=== PATIENT | female | born 1945 | race Caucasian/White ===

== ENCOUNTER 2018-10-13 09:53 | Emergency (ER) | payer OTHER ==
--- OUTSIDE RECORDS SUMMARY | 2018-10-13 09:55 | XMS REPORT | Clinical Summary ---
:1945 Author Organization [facility] Address [address] [place] [address] Care Team Providers Name Role Phone Melanie Patricia Karthikeyan Primary Care Provider Allergies No Known Allergies Medications Medication Sig Dispensed Refills Start Date End Date Status lisinopril-hydroCHLOR Take 1 tablet by 0 Active Othiazide mouth daily. (PRINZIDE,ZESTORETIC) 20-12.5 mg per tablet umeclidinium-vilanter Inhale 1 puff by 0 Active ol (ANORO ELLIPTA) mouth via 62.5-25 mcg/actuation inhaler nightly. DsDv aspirin 81 MG EC Take 81 mg by 0 Active tablet mouth daily. traMADol (ULTRAM) 50 Take 50 mg by 0 Active mg tablet mouth 3 (three) times daily as needed for Pain. clopidogrel (PLAVIX) Take 1 tablet 30 tablet 0 06/26/2017 06/26/2018 75 mg tablet (75 mg total) by mouth daily. atorvastatin Take 1 tablet 30 tablet 0 06/25/2017 06/25/2018 (LIPITOR) 40 MG (40 mg total) by tablet mouth nightly. Active Problems Problem Noted Date Popliteal artery stenosis, left 06/23/2017 Peripheral arterial disease 06/22/2017 Hypertension COPD (chronic obstructive pulmonary disease) Social History Tobacco Use Types Packs/Day Years Used Date Current Every Day Smoker 40 Smokeless Tobacco: Never Used Tobacco Cessation: Ready to Quit: Yes; Counseling Given: Yes Comments: Pt has chantix at home but hasnt used it yet Alcohol Use Drinks/Week oz/Week Comments No Sex Assigned at Date Recorded Not on file Job Start Date Occupation Industry Not on file Not on file Not on file Travel History Travel Start Travel End No recent travel history available. Last Filed Vital Signs Not on file Plan of Treatment Not on file Results Not on fileafter 10/12/2017 Insurance Payer Benefit Plan / Group Subscriber ID Type Phone Address MEDICARE MEDICARE A B xxxxxxxxxx Medicare MCR SUPPLEMENT/[employer] xxxxxxxxx Comm Advance Directives For more information, please contact:[address] [phone] Code Status Date Activated Date Inactivated Comments Full Code 06/22/2017 10:36 PM 06/25/2017 6:58 PM This code status was determined by: Patient
--- OUTSIDE RECORDS SUMMARY | 2018-10-13 09:56 | XMS REPORT ---
:1945 [facility] Address [address] [place] [address] [address] [place] [address] Care Team Providers Name Role Phone RACHCarANMOL Unavailable Unavailable CARLOS BARRETT Unavailable Unavailable Problems This patient has no known problems. Allergies, Adverse Reactions, Alerts This patient has no known allergies or adverse reactions. Medications This patient has no known medications. Results Test Description Test Time Test Comments Text Results Atomic Results Result Comments BLOOD CULTURE 2017-06-27 23:00:00 Test Item Value Reference Range Comments CULTURE (BEAKER) (test vehi=9469) No growth in 5 days BLOOD [id number] 23:00:00 Test Item Value Reference Range Comments CULTURE (BEAKER) (test yqls=7874) No growth in 5 days URINE [id number] 13:33:00 Test Item Value Reference Range Comments CULTURE (BEAKER) (test acak=2222) No growth [id number] 04:10:00 Test Item Value Reference Range Comments MAGNESIUM (BEAKER) (test 1.9 mg/dL 1.5-3.0 Specimen slightly hemolyzed wvew=926) [id number] 04:10:00 Test Item Value Reference Range Comments PHOSPHORUS (BEAKER) (test 3.7 mg/dL 2.5-4.5 Specimen slightly hemolyzed ffes=786) BASIC METABOLIC [id number] 04:10:00 Test Item Value Reference Range Comments SODIUM (BEAKER) (test 140 meq/L 135-148 evwt=918) POTASSIUM (BEAKER) (test 4.2 meq/L 3.5-5.5 Specimen slightly zutr=279) hemolyzed CHLORIDE (BEAKER) (test 107 meq/L 98-106 wkcq=126) CO2 (BEAKER) (test 20 meq/L 20-31 lgtt=755) BLOOD UREA NITROGEN 18 mg/dL 10-26 (BEAKER) (test psyu=247) CREATININE (BEAKER) (test 0.86 mg/dL 0.50-1.20 Specimen slightly axyu=235) hemolyzed GLUCOSE RANDOM (BEAKER) 91 mg/dL 70-110 (test spsy=840) CALCIUM (BEAKER) (test 9.0 mg/dL 8.5-10.5 myts=156) EGFR (BEAKER) (test 65 mL/min/1.73 sq m ESTIMATED GFR IS NOT psse=6040) ACCURATE CREATININE CLEARANCE IN PREDICTING GLOMERULAR FILTRATION RATE. ESTIMATED GFR IS NOT APPLICABLE FOR DIALYSIS PATIENTS. CBC W/PLT COUNT & AUTO [id number] 03:50:00 Test Item Value Reference Range Comments WHITE BLOOD CELL COUNT (BEAKER) (test sphs=370) 7.9 K/ L 4.0-10.0 RED BLOOD CELL COUNT (BEAKER) (test bpnp=285) 4.24 M/ L 4.00-5.00 HEMOGLOBIN (BEAKER) (test dhin=893) 13.3 GM/DL 12.0-15.0 HEMATOCRIT (BEAKER) (test gzix=520) 38.8 % 36.0-45.0 MEAN CORPUSCULAR VOLUME (BEAKER) (test oswg=572) 91.3 fL 82.0-99.0 MEAN CORPUSCULAR HEMOGLOBIN (BEAKER) (test 31.3 pg 27.0-33.0 nmsh=847) MEAN CORPUSCULAR HEMOGLOBIN CONC (BEAKER) (test 34.3 GM/DL 32.0-36.0 rdge=703) RED CELL DISTRIBUTION WIDTH (BEAKER) (test 14.6 % 12.0-15.0 tmqq=755) PLATELET COUNT (BEAKER) (test oejx=665) 245 K/CU MM 150-430 MEAN PLATELET VOLUME (BEAKER) (test kvva=052) 9.1 fL 6.5-10.5 NUCLEATED RED BLOOD CELLS (BEAKER) (test 0 /100 WBC 0-0 zcgq=357) NEUTROPHILS RELATIVE PERCENT (BEAKER) (test 59 % iaff=360) LYMPHOCYTES RELATIVE PERCENT (BEAKER) (test 28 % cnmx=176) MONOCYTES RELATIVE PERCENT (BEAKER) (test 8 % ppmz=275) EOSINOPHILS RELATIVE PERCENT (BEAKER) (test 4 % hlga=956) BASOPHILS RELATIVE PERCENT (BEAKER) (test 1 % tpsc=577) NEUTROPHILS ABSOLUTE COUNT (BEAKER) (test 4.70 K/ L 1.80-8.00 hqvr=092) LYMPHOCYTES ABSOLUTE COUNT (BEAKER) (test 2.20 K/ L 1.48-4.50 ecod=706) MONOCYTES ABSOLUTE COUNT (BEAKER) (test 0.60 K/ L 0.00-1.30 qfbs=288) EOSINOPHILS ABSOLUTE COUNT (BEAKER) (test 0.30 K/ L 0.00-0.50 wibl=527) BASOPHILS ABSOLUTE COUNT (BEAKER) (test 0.10 K/ L 0.00-0.20 tuhh=152) [id number] 18:22:00 Test Item Value Reference Range Comments PARTIAL THROMBOPLASTIN TIME (BEAKER) (test 40.0 seconds 23.2-36.1 wold=463) CBC (HEMOGRAM ONLY)2017-06-24 18:10:00 Test Item Value Reference Range Comments WHITE BLOOD CELL COUNT (BEAKER) (test nnvy=336) 9.5 K/ L 4.0-10.0 RED BLOOD CELL COUNT (BEAKER) (test zdkw=226) 4.57 M/ L 4.00-5.00 HEMOGLOBIN (BEAKER) (test nulf=331) 14.2 GM/DL 12.0-15.0 HEMATOCRIT (BEAKER) (test ppcq=706) 41.8 % 36.0-45.0 MEAN CORPUSCULAR VOLUME (BEAKER) (test pzbe=847) 91.5 fL 82.0-99.0 MEAN CORPUSCULAR HEMOGLOBIN (BEAKER) (test 31.1 pg 27.0-33.0 troz=427) MEAN CORPUSCULAR HEMOGLOBIN CONC (BEAKER) (test 34.0 GM/DL 32.0-36.0 ckbe=507) RED CELL DISTRIBUTION WIDTH (BEAKER) (test 14.8 % 12.0-15.0 qwqx=851) PLATELET COUNT (BEAKER) (test vejc=538) 247 K/CU MM 150-430 MEAN PLATELET VOLUME (BEAKER) (test nqub=571) 9.9 fL 6.5-10.5 NUCLEATED RED BLOOD CELLS (BEAKER) (test 0 /100 WBC 0-0 dawp=890) [id number] 07:55:00 Test Item Value Reference Range Comments PARTIAL THROMBOPLASTIN TIME (BEAKER) (test 71.8 seconds 23.2-36.1 jwvv=183) [id number] 04:59:00 Test Item Value Reference Range Comments PHOSPHORUS (BEAKER) (test wovx=250) 4.0 mg/dL 2.5-4.5 [id number] 04:59:00 Test Item Value Reference Range Comments MAGNESIUM (BEAKER) (test kkje=253) 1.9 mg/dL 1.5-3.0 BASIC METABOLIC [id number] 04:59:00 Test Item Value Reference Range Comments SODIUM (BEAKER) (test 140 meq/L 135-148 urmt=684) POTASSIUM (BEAKER) (test 4.2 meq/L 3.5-5.5 toet=099) CHLORIDE (BEAKER) (test 109 meq/L 98-106 zxhx=850) CO2 (BEAKER) (test 20 meq/L 20-31 kyoo=105) BLOOD UREA NITROGEN 23 mg/dL 10-26 (BEAKER) (test eolx=281) CREATININE (BEAKER) (test 1.18 mg/dL 0.50-1.20 qwle=916) GLUCOSE RANDOM (BEAKER) 107 mg/dL 70-110 (test yqht=553) CALCIUM (BEAKER) (test 9.4 mg/dL 8.5-10.5 hunv=729) EGFR (BEAKER) (test 45 mL/min/1.73 sq m ESTIMATED GFR IS NOT mgqz=2399) ACCURATE CREATININE CLEARANCE IN PREDICTING GLOMERULAR FILTRATION RATE. ESTIMATED GFR IS NOT APPLICABLE FOR DIALYSIS PATIENTS. CBC W/PLT COUNT & AUTO [id number] 04:35:00 Test Item Value Reference Range Comments WHITE BLOOD CELL COUNT (BEAKER) (test usmy=980) 9.5 K/ L 4.0-10.0 RED BLOOD CELL COUNT (BEAKER) (test xlvc=670) 4.36 M/ L 4.00-5.00 HEMOGLOBIN (BEAKER) (test sewc=348) 13.6 GM/DL 12.0-15.0 HEMATOCRIT (BEAKER) (test dnpr=360) 39.9 % 36.0-45.0 MEAN CORPUSCULAR VOLUME (BEAKER) (test cfsw=779) 91.6 fL 82.0-99.0 MEAN CORPUSCULAR HEMOGLOBIN (BEAKER) (test 31.2 pg 27.0-33.0 yzge=735) MEAN CORPUSCULAR HEMOGLOBIN CONC (BEAKER) (test 34.1 GM/DL 32.0-36.0 qwbt=323) RED CELL DISTRIBUTION WIDTH (BEAKER) (test 14.3 % 12.0-15.0 lbci=875) PLATELET COUNT (BEAKER) (test hsua=014) 204 K/CU MM 150-430 MEAN PLATELET VOLUME (BEAKER) (test glbc=079) 9.7 fL 6.5-10.5 NUCLEATED RED BLOOD CELLS (BEAKER) (test 0 /100 WBC 0-0 sree=118) NEUTROPHILS RELATIVE PERCENT (BEAKER) (test 66 % belh=422) LYMPHOCYTES RELATIVE PERCENT (BEAKER) (test 22 % niyz=318) MONOCYTES RELATIVE PERCENT (BEAKER) (test 9 % kgta=728) EOSINOPHILS RELATIVE PERCENT (BEAKER) (test 3 % ptux=971) BASOPHILS RELATIVE PERCENT (BEAKER) (test 0 % gnsx=646) NEUTROPHILS ABSOLUTE COUNT (BEAKER) (test 6.20 K/ L 1.80-8.00 sqav=212) LYMPHOCYTES ABSOLUTE COUNT (BEAKER) (test 2.10 K/ L 1.48-4.50 atoq=177) MONOCYTES ABSOLUTE COUNT (BEAKER) (test 0.80 K/ L 0.00-1.30 rnqu=123) EOSINOPHILS ABSOLUTE COUNT (BEAKER) (test 0.30 K/ L 0.00-0.50 crir=598) BASOPHILS ABSOLUTE COUNT (BEAKER) (test 0.00 K/ L 0.00-0.20 bjyc=690) [id number] 01:33:00 Test Item Value Reference Range Comments PARTIAL THROMBOPLASTIN TIME (BEAKER) (test 74.1 seconds 23.2-36.1 unqz=869) [id number] 20:11:00 Test Item Value Reference Range Comments PARTIAL THROMBOPLASTIN TIME (BEAKER) (test 58.6 seconds 23.2-36.1 skbr=349) ARTERIAL DOPPLER LEGS, [id number] 14:29:00Reason for exam:->R/O OcclusionFINAL REPORT BILATERAL LOWER EXTREMITY ARTERIAL DOPPLER INDICATION: R/O Occlusion COMPARISON: None TECHNIQUE: Grayscale, color Doppler, and spectral waveform analysis evaluations of the bilateral lower extremity arterial systems were obtained. FINDINGS: RIGHT LOWER EXTREMITY:Right distal external iliac, common femoral, superficial femoral , deep femoral, popliteal, anterior tibial, posterior tibial, and peroneal arteries are patent. Spectral Doppler demonstrates normal triphasic waveforms of the right lower extremity with the exception of the posterior tibial and peroneal arteries which demonstrate monophasic and biphasic waveforms respectively. Peak systolic velocities (cm/sec):Common femoral artery: 166.69Profunda femoral artery: 85.88Upper femoral artery: 109.98Mid femoral artery: 125.38Lower femoral artery: 152.25Popliteal artery: 110.91Proximal anterior tibial artery: 121.83Proximal peroneal artery: 104.98Proximal posterior tibial artery: 10.94Distal posterior tibial artery: 18.75Distal anterior tibial artery: 68.73 LEFT LOWER EXTREMITY:There is complete occlusionof the proximal and mid left posterior tibial artery. There is a high- grade stenosis in the distal left superficial femoral artery. Left distal external iliac, common femoral, superficial femoral, deepfemoral, popliteal, anterior tibial, and peroneal arteries are patent. Spectral Doppler demonstratesnormal monophasic waveforms throughout the lower extremity with the exception of the external iliac,common femoral, deep femoral and proximal and mid femoral arteries which demonstrate either triphasic or biphasic waveforms. Peak systolic velocities (cm/sec):Common femoral artery: 175.92Profunda femoral artery: 58.09Upper femoral artery: 69.34Mid femoral artery: 103.71Lower femoral artery: 291.68Popliteal artery: 47.48Proximal anterior tibial artery: 42.83Proximal peroneal artery: 52.34Proximal posterior tibial artery: 0.00Distal posterior tibial artery: 13.32Distal peroneal artery: 60.15Distal anterior tibial artery: 75.92 IMPRESSION:1. 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 Signed: Cleopatra Funse MDReport Verified Date/Time: 06/23 14:29:09 Reading Location: [facility] Radiology Reading Room [id number] 08:37: 00 Test Item Value Reference Range Comments PARTIAL THROMBOPLASTIN TIME (BEAKER) (test 57.6 seconds 23.2-36.1 yblz=211) [id number] 05:00:00 Test Item Value Reference Range Comments PHOSPHORUS (BEAKER) (test hnev=106) 4.2 mg/dL 2.5-4.5 [id number] 05:00:00 Test Item Value Reference Range Comments MAGNESIUM (BEAKER) (test dphc=806) 1.7 mg/dL 1.5-3.0 BASIC METABOLIC [id number] 05:00:00 Test Item Value Reference Range Comments SODIUM (BEAKER) (test 139 meq/L 135-148 juvw=532) POTASSIUM (BEAKER) (test 4.3 meq/L 3.5-5.5 lqvo=211) CHLORIDE (BEAKER) (test 106 meq/L 98-106 icln=350) CO2 (BEAKER) (test 22 meq/L 20-31 pxji=482) BLOOD UREA NITROGEN 20 mg/dL 10-26 (BEAKER) (test qoxh=400) CREATININE (BEAKER) (test 0.89 mg/dL 0.50-1.20 jrjw=876) GLUCOSE RANDOM (BEAKER) 100 mg/dL 70-110 (test fwne=727) CALCIUM (BEAKER) (test 9.5 mg/dL 8.5-10.5 ilos=955) EGFR (BEAKER) (test 63 mL/min/1.73 sq m ESTIMATED GFR IS NOT uhpt=0435) ACCURATE CREATININE CLEARANCE IN PREDICTING GLOMERULAR FILTRATION RATE. ESTIMATED GFR IS NOT APPLICABLE FOR DIALYSIS PATIENTS. CBC W/PLT COUNT & AUTO [id number] 04:23:00 Test Item Value Reference Range Comments WHITE BLOOD CELL COUNT (BEAKER) (test acca=718) 9.7 K/ L 4.0-10.0 RED BLOOD CELL COUNT (BEAKER) (test xoit=704) 4.35 M/ L 4.00-5.00 HEMOGLOBIN (BEAKER) (test tdtw=259) 13.6 GM/DL 12.0-15.0 HEMATOCRIT (BEAKER) (test hhgz=237) 40.2 % 36.0-45.0 MEAN CORPUSCULAR VOLUME (BEAKER) (test dkwl=804) 92.3 fL 82.0-99.0 MEAN CORPUSCULAR HEMOGLOBIN (BEAKER) (test 31.1 pg 27.0-33.0 vcmq=149) MEAN CORPUSCULAR HEMOGLOBIN CONC (BEAKER) (test 33.7 GM/DL 32.0-36.0 qsdg=400) RED CELL DISTRIBUTION WIDTH (BEAKER) (test 14.9 % 12.0-15.0 czzg=467) PLATELET COUNT (BEAKER) (test wxch=024) 188 K/CU MM 150-430 MEAN PLATELET VOLUME (BEAKER) (test ewlk=054) 9.7 fL 6.5-10.5 NUCLEATED RED BLOOD CELLS (BEAKER) (test 0 /100 WBC 0-0 camy=856) NEUTROPHILS RELATIVE PERCENT (BEAKER) (test 61 % skil=772) LYMPHOCYTES RELATIVE PERCENT (BEAKER) (test 28 % kkup=500) MONOCYTES RELATIVE PERCENT (BEAKER) (test 6 % borv=801) EOSINOPHILS RELATIVE PERCENT (BEAKER) (test 3 % yvds=310) BASOPHILS RELATIVE PERCENT (BEAKER) (test 2 % zxqg=573) NEUTROPHILS ABSOLUTE COUNT (BEAKER) (test 5.90 K/ L 1.80-8.00 qeqz=666) LYMPHOCYTES ABSOLUTE COUNT (BEAKER) (test 2.80 K/ L 1.48-4.50 pofc=458) MONOCYTES ABSOLUTE COUNT (BEAKER) (test 0.60 K/ L 0.00-1.30 zawj=988) EOSINOPHILS ABSOLUTE COUNT (BEAKER) (test 0.30 K/ L 0.00-0.50 mkom=142) BASOPHILS ABSOLUTE COUNT (BEAKER) (test 0.20 K/ L 0.00-0.20 osyt=247) [id number] 01:10:00 Test Item Value Reference Range Comments PARTIAL THROMBOPLASTIN TIME (BEAKER) (test 46.5 seconds 23.2-36.1 fada=651) RAPID INFLUENZA A&B [id number] 18:18:00 Test Item Value Reference Range Comments RAPID INFLUENZA A AG (BEAKER) (test etal=0637) Negative Negative RAPID INFLUENZA B AG (BEAKER) (test eeal=1030) Negative Negative [id number] 18:11:00 Test Item Value Reference Range Comments PROTIME (BEAKER) (test gtmg=445) 12.8 seconds 11.8-14.4 INR (BEAKER) (test plrk=103) 1.0 1.2-1.5 PARTIAL THROMBOPLASTIN TIME (BEAKER) (test 26.4 seconds 23.2-36.1 qkqq=149) RECOMMENDED COUMADIN/WARFARIN INR THERAPY RANGESSTANDARD DOSE: 2.0 - 3.0 Includes: PROPHYLAXIS forvenous thrombosis, systemic embolization; TREATMENT for venous thrombosis and/or pulmonary embolus.HIGH RISK: Target INR is 2.5-3.5 for patients with mechanical heart valves.BASIC METABOLIC [id number] 17:54: 00 Test Item Value Reference Range Comments SODIUM (BEAKER) (test 137 meq/L 135-148 pcjd=672) POTASSIUM (BEAKER) (test 4.3 meq/L 3.5-5.5 dlok=758) CHLORIDE (BEAKER) (test 102 meq/L 98-106 bspf=556) CO2 (BEAKER) (test 22 meq/L 20-31 zsxn=693) BLOOD UREA NITROGEN 20 mg/dL 10-26 (BEAKER) (test ajae=976) CREATININE (BEAKER) (test 0.95 mg/dL 0.50-1.20 kcsc=337) GLUCOSE RANDOM (BEAKER) 96 mg/dL 70-110 (test xrhk=960) CALCIUM (BEAKER) (test 10.5 mg/dL 8.5-10.5 mpdc=997) EGFR (BEAKER) (test 58 mL/min/1.73 sq m ESTIMATED GFR IS NOT nrvz=6621) ACCURATE CREATININE CLEARANCE IN PREDICTING GLOMERULAR FILTRATION RATE. ESTIMATED GFR IS NOT APPLICABLE FOR DIALYSIS PATIENTS. RAD, CHEST, 1 VIEW, NON [id number] 17:48:00Reason for exam:->WOUND CHECKReason for exam:->Should this be performed at the bedside?->YesFINAL REPORT Chest, AP view. History: Wound check. Comparison : None available. Discussion: The cardiomediastinal silhouette and pulmonary vasculature are within normal limits.The lungs are clear without evidence of consolidation or effusion. There are no acute osseous abnormalities. The soft tissues are unremarkable. IMPRESSION: No acute cardiopulmonary abnormality. Signed: Vitor Schmidt MDReport Verified Date/Time: 06/22/2017 17:48:23 Reading Location: [facility] Reading Room URINALYSIS W/ [id number] 17:42:00 Test Item Value Reference Range Comments COLOR (BEAKER) (test furl=580) Yellow CLARITY (BEAKER) (test futs=026) Clear SPECIFIC GRAVITY UA (BEAKER) (test jcwd=256) 1.014 1.001-1.035 PH UA (BEAKER) (test pvgb=153) 5.0 5.0-8.0 PROTEIN UA (BEAKER) (test xkcz=744) Negative Negative GLUCOSE UA (BEAKER) (test aint=906) Negative Negative KETONES UA (BEAKER) (test iczr=331) Negative Negative BILIRUBIN UA (BEAKER) (test xaaq=876) Positive Negative BLOOD UA (BEAKER) (test hbhg=248) Negative Negative NITRITE UA (BEAKER) (test htzx=003) Positive Negative LEUKOCYTE ESTERASE UA (BEAKER) (test buiv=121) Trace Negative UROBILINOGEN UA (BEAKER) (test rsgg=782) 4.0 mg/dL 0.2-1.0 RBC UA (BEAKER) (test acnp=992) 1 /HPF WBC UA (BEAKER) (test tzlz=177) 17 /HPF BACTERIA (BEAKER) (test csbx=472) Moderate MUCUS (BEAKER) (test rizf=7397) Rare SQUAMOUS EPITHELIAL (BEAKER) (test axxa=660) 1 /HPF SOURCE(BEAKER) (test jpfo=3291) LACTIC ACID, VENOUS, WHOLE [id number] 17:37:00 Test Item Value Reference Range Comments LACTATE BLOOD VENOUS (2) 1.5 mmol/L 0.5-2.2 Specimen slightly hemolyzed (BEAKER) (test poes=9707) Effective 08/20/2015: Units/Reference Range ChangeNew: 0.5-2.2 mmol/L Previous: 5 -20 mg/dLCBC W/PLT COUNT & AUTO [id number] 17:32:00 Test Item Value Reference Range Comments WHITE BLOOD CELL COUNT (BEAKER) (test jsjg=769) 14.1 K/ L 4.0-10.0 RED BLOOD CELL COUNT (BEAKER) (test pbpf=684) 4.93 M/ L 4.00-5.00 HEMOGLOBIN (BEAKER) (test jwpu=605) 15.4 GM/DL 12.0-15.0 HEMATOCRIT (BEAKER) (test jolw=684) 44.8 % 36.0-45.0 MEAN CORPUSCULAR VOLUME (BEAKER) (test gogf=780) 91.0 fL 82.0-99.0 MEAN CORPUSCULAR HEMOGLOBIN (BEAKER) (test 31.3 pg 27.0-33.0 nqtu=705) MEAN CORPUSCULAR HEMOGLOBIN CONC (BEAKER) (test 34.4 GM/DL 32.0-36.0 gxgf=536) RED CELL DISTRIBUTION WIDTH (BEAKER) (test 15.1 % 12.0-15.0 mywd=368) PLATELET COUNT (BEAKER) (test qgdj=116) 223 K/CU MM 150-430 MEAN PLATELET VOLUME (BEAKER) (test gfmm=346) 9.8 fL 6.5-10.5 NUCLEATED RED BLOOD CELLS (BEAKER) (test 0 /100 WBC 0-0 qshg=480) NEUTROPHILS RELATIVE PERCENT (BEAKER) (test 81 % tawh=913) LYMPHOCYTES RELATIVE PERCENT (BEAKER) (test 12 % iinm=660) MONOCYTES RELATIVE PERCENT (BEAKER) (test 5 % mbbr=630) EOSINOPHILS RELATIVE PERCENT (BEAKER) (test 2 % xmxr=964) BASOPHILS RELATIVE PERCENT (BEAKER) (test 0 % ukfu=219) NEUTROPHILS ABSOLUTE COUNT (BEAKER) (test 11.40 K/ L 1.80-8.00 emok=819) LYMPHOCYTES ABSOLUTE COUNT (BEAKER) (test 1.70 K/ L 1.48-4.50 kyka=456) MONOCYTES ABSOLUTE COUNT (BEAKER) (test 0.70 K/ L 0.00-1.30 ephe=788) EOSINOPHILS ABSOLUTE COUNT (BEAKER) (test 0.30 K/ L 0.00-0.50 kgwj=850) BASOPHILS ABSOLUTE COUNT (BEAKER) (test 0.00 K/ L 0.00-0.20 sqbe=898) CT, CTA AAA, W/ MIRIAM.EXT.[id number] 16:20:00Addendum BeginsREPORT STATUS:A ADDENDUM: Study reviewed by radiology. Agree with the nonvascular findings as described below. Signed: Michael Bo MDReport Verified Date/Time: 06/15/2017 16:20:52 Reading Location: [place] [id number] Angio Body Reading RoomAddendum EndsFINAL REPORT CT angiography of the abdominal aorta with runoff, 14 June 2017 INDICATION: This is a 71 years old female, with diagnosis of atherosclerosis of both lower extremities presents for assessment. This study is performed in attempt to avoid invasive procedure. TECHNIQUE: Spiral acquisition before and during contrast administration using a [employer] multidetector CT scanner. Multiplanar 3- D volume rendering reformation was performed using independent workstation interactively by the dictating physician and the 3-D specialist. The amount of contrast used and method of administration can be found in scanned Epic document. This exam was performed according to our departmental dose- optimisation programme, which includes automated exposure control, adjustment of the mA and/or kVaccording to patient size and/or use of iterative reconstruction technique. Dose modulation, iterative reconstruction, and/or weight based adjustment of the mA/kV was utilised to reduce the radiation dose to as low as reasonably achievable. FINDINGS: VASCULAR: Coronary artery calcification is seen in the RCA territory. The abdominal aorta is normal in course and calibre. Some scattered calcific atherosclerosis is seen along the course of the infrarenal abdominal aorta. No acute aortic pathology is identified no dissection or contained rupture is seen. No aneurysmal dilation is identified in the entire abdominal aorta. Quantitative dimensions of the aorta are as follows: 2.2 cm at the mesenteric level; 2.8 cm at the renal level ; and 1.7 cm at the aortic bifurcation. Single left and right renal arteries that are widely patent. The coeliac axis and SMA has some atherosclerosis identified, however,no significant obstructive lesion is seen. The SANTIAGO is widely patent. Calcific atherosclerosis is seen in the left common iliac artery though no significant obstructive lesion is identified, with at most mild stenosis present. The left external iliac artery and the left common femoral artery only at minimal nonobstructive calcification identified. The left SFA and the left profunda system is widely patent. However, at the takeoff of the left popliteal artery, at image 404, there is likely a significant focal discrete lesion identified at the takeoff of the left popliteal artery. Distal to this, the left popliteal artery unremarkable though at the level of the left knee joint, it is obscured by the beam hardening artefact from the left knee prosthesis. In the left lower extremity, the left tibioperoneal trunk is patent. The left peroneal artery is well seen down to level of the ankle. There is likely diffuse disease seen along the course of the entire left posterior tibial artery. The left anterior tibial artery is also patent but a small calibre vessel and the dorsalis pedis artery is not well seen. 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 The right external iliac and the right common femoral artery is unremarkable. Some minimal eccentric nonobstructive calcification is seen along the course of the right SFA with no stenosis identified. The right profunda system is unremarkable. The right popliteal artery is unremarkable. In the right lower extremity, the right tibioperoneal trunk is patent. The right peroneal artery is well seendown to the level of the ankle. The right anterior tibial artery is widely patent, and the dorsalis pedis artery is well seen. The right posterior tibial artery is a small caliber vessel throughout itscourse. NONVASCULAR: There are number of small nodules identified in the lung bases in the precontrast series. See arrows in PACS for details. It is small in size. Significance of this finding is uncertain; an addendum will be dictated thereafter, if needed. In the abdomen, the liver and spleen appears unremarkable. The liver edge is smooth. No abnormal enhancing structure is identified. However, diffuse fatty infiltration of the liver is seen. The adrenal glands are not enlarged. The gallbladder and the pancreas appears unremarkable. No acute renal pathology is seen and no hydronephrosis or perirenal fluid collection is appreciated. Bowel is not well assessed by CT angiography as enteric contrastis not given. No obvious bowel dilation is identified. Diverticular disease is seen in the descending and sigmoid colon with no evidence of acute diverticulitis. An hiatus hernia is identified. Incidental note, there is likely a duodenal diverticulum identified, an incidental finding. No free air or free fluid seen in the abdomen and pelvis. No significant retroperitoneal adenopathy is seen. The uterus is not well appreciated. No abnormal adnexal mass is seen though CT is not optimised in the assessment of pelvic gynaecological structures. The bladder appears unremarkable. In the bony windows, no acute bony pathology is identified. Some degenerative changes are noted. Left knee prosthesis is identified, with associated beam hardening artefact, making assessment of the adjacent structures limited.CONCLUSIONS: 1. There is atherosclerosis identified in the abdominal aorta. No acute aortic pathology is seen. Quantitative dimensions of the abdominal aorta are as described above. 2. Calcific atherosclerosis is seen in the common iliac arteries, bilaterally. 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 Remainder of the pelvic arteries unremarkable. 3. The left and the right SFA is unremarkable. However, in the takeoff of the left popliteal artery, image 404, substantial noncalcific atherosclerosis is seen focally, likely represent a focal discrete lesion. Remainder of the left popliteal artery is unremarkable though at one segment, it is obscured by the left knee prosthesis. The right popliteal artery is unremarkable. At the time of dictation, no information provided regarding which leg is asymptomatic. 4. Details of runoff vessels as described above. 5. Other findings as described above. Hepatic steatosis. 6. An addendum will be dictated by the [facility] Radiologist regarding the nonvascular findings. Signed: Kevin Hayneseport Verified Date/Time: 07:12:58 Reading Location: [place] [address] Cardiology MRI POCT- [id number] 17:06:00 Test Item Value Reference Range Comments POC-CREATININE (ANN) 0.9 mg/dL 0.6-1.3 TESTED AT [facility] [address] [address] (test [id number]) [facility] [address] POC-EGFR (ANN) (test 62 mL/min/1.73M2 [id number])
--- NOTE | 2018-10-13 10:52 | EDPHYS ---
Physician Documentation [facility] Name: Lakesha Palacios Age: 72 yrs Sex: Female : 1945 Arrival Date: 10/13/2018 Time: 09:57 Bed 20 Private MD: ED Physician Ted Loera HPI: 10/13 10:34 This 72 yrs old Female presents to ER via Ambulatory with complaints of gs Finger Swelling-ring stuck. 10:34 The complaints affect the dorsal aspect of proximal phalanx of right ring finger. gs Onset: The symptoms/episode began/occurred yesterday. Associated signs and symptoms: Pertinent positives:. 10:35 Context: resulted from blow to finger, swelling ecchymosis. Severity of symptoms: At gs their worst the symptoms were moderate, in the emergency department the symptoms are unchanged. The patient has not experienced similar symptoms in the past. Historical: - Allergies: 10:15 No Known Allergies; iw - Home Meds: 10:15 Plavix 75 mg Oral tab 1 tab once daily [Active]; Benicar oral oral once daily [Active]; iw Pletal Oral daily [Active]; - PMHx: 10:15 Hypertension; iw - PSHx: 10:15 Heart stents; iw - Immunization history:: Adult Immunizations up to date. - Social history:: Smoking status: Patient/guardian denies using tobacco. - Ebola Screening: : Patient negative for fever greater than or equal to 101.5 degrees Fahrenheit, and additional compatible Ebola Virus Disease symptoms Patient denies exposure to infectious person Patient denies travel to an Ebola-affected area in the 21 days before illness onset No symptoms or risks identified at this time. ROS: 10:35 All other systems are negative. gs Exam: 10:35 Constitutional: The patient appears alert, awake, uncomfortable. gs 10:35 Musculoskeletal/extremity: Pulses: are normal with no appreciated deficits, Sensation intact. no point tender. Vital Signs: 10:15 BP 122 / 78; Pulse 99; Resp 18; Temp 98.2; Pulse Ox 100% on R/A; Weight 108.86 kg; em Height 5 ft. 6 in. (167.64 cm); Pain 0/10; 10:20 Pain 0/10; iw 10:15 Body Mass Index 38.74 (108.86 kg, 167.64 cm) Procedures: 10:35 Foreign Body Removal: piece of jewelry, a ring, from the right by using a hemostat, wire cutters. The patient tolerated the removal well. MDM: 10:27 Patient medically screened. gs 10:35 Data reviewed: vital signs, nurses notes. Counseling: I had a detailed discussion with gs the patient and/or guardian regarding: the historical points, exam findings, and any diagnostic results supporting the discharge/admit diagnosis. Administered Medications: No medications were administered Disposition: 10/13/18 10:51 Discharged to Home. Impression: foreign body right ring finger. - Condition is Stable. - Medication Reconciliation Form, Thank You Letter, Antibiotic Education, Prescription Opioid Use form. - Follow up: Private Physician; When: 2 - 3 days; Reason: Re-evaluation by your physician. Signatures: Faith Blanton RN RN iw Ted Loera MD MD gs Corrections: (The following items were deleted from the chart) 10:58 10:51 10/13/2018 10:51 Discharged to Home. Impression: foreign body right ring finger. iw Condition is Stable. Forms are Medication Reconciliation Form, Thank You Letter, Antibiotic Education, Prescription Opioid Use. Follow up: Private Physician; When: 2 - 3 days; Reason: Re-evaluation by your physician. gs
--- NOTE | 2018-10-13 10:52 | ER ---
Nurse's Notes [facility] Name: Lakesha Palacios Age: 72 yrs Sex: Female : 1945 Arrival Date: 10/13/2018 Time: 09:57 Bed 20 Private MD: Diagnosis: foreign body right ring finger Presentation: 10/13 10:13 Presenting complaint: Patient states: jammed right ring finger yesterday, left her ring iw on, finger swelled up over night, can't get her ring off. Transition of care: patient was not received from another setting of care. Onset of symptoms was October 13, 2018. Risk Assessment: Do you want to hurt yourself or someone else? Patient reports no desire to harm self or others. Initial Sepsis Screen: Does the patient meet any 2 criteria? No. Patient's initial sepsis screen is negative. Does the patient have a suspected source of infection? No. Patient's initial sepsis screen is negative. Care prior to arrival: None. 10:13 Method Of Arrival: Ambulatory iw 10:13 Acuity: SULMA 4 iw Triage Assessment: 10:20 General: Appears in no apparent distress. Behavior is calm. iw Historical: - Allergies: 10:15 No Known Allergies; iw - Home Meds: 10:15 Plavix 75 mg Oral tab 1 tab once daily [Active]; Benicar oral oral once daily [Active]; iw Pletal Oral daily [Active]; - PMHx: 10:15 Hypertension; iw - PSHx: 10:15 Heart stents; iw - Immunization history:: Adult Immunizations up to date. - Social history:: Smoking status: Patient/guardian denies using tobacco. - Ebola Screening: : Patient negative for fever greater than or equal to 101.5 degrees Fahrenheit, and additional compatible Ebola Virus Disease symptoms Patient denies exposure to infectious person Patient denies travel to an Ebola-affected area in the 21 days before illness onset No symptoms or risks identified at this time. Screenin:20 Abuse screen: Denies threats or abuse. Nutritional screening: No deficits noted. em Tuberculosis screening: No symptoms or risk factors identified. Fall Risk None identified. Assessment: 10:20 General: Appears in no apparent distress. comfortable, Behavior is calm, cooperative. em Pain: Denies pain. Neuro: Level of Consciousness is awake, alert, obeys commands, Oriented to person, place, time, situation. Cardiovascular: Capillary refill < 3 seconds Patient's skin is warm and dry. Respiratory: Airway is patent Respiratory effort is even, unlabored, Respiratory pattern is regular, symmetrical. Derm: Skin is intact, is fragile, Skin is pink, warm \T\ dry. Musculoskeletal: Swelling present in dorsal aspect of proximal phalanx of right ring finger. 10:30 Reassessment: Patient appears in no apparent distress at this time. I agree with above iw assessment by Bhavin Esteves LVN. Vital Signs: 10:15 BP 122 / 78; Pulse 99; Resp 18; Temp 98.2; Pulse Ox 100% on R/A; Weight 108.86 kg; em Height 5 ft. 6 in. (167.64 cm); Pain 0/10; 10:20 Pain 0/10; iw 10:15 Body Mass Index 38.74 (108.86 kg, 167.64 cm) em ED Course: 09:57 Patient arrived in ED. as 10:07 Bhavin Esteves LVN is Primary Nurse. em 10:09 Ted Loera MD is Attending Physician. gs 10:09 [facility] jr8 10:14 Triage completed. iw 10:15 Arm band placed on. iw 10:20 Patient has correct armband on for positive identification. Bed in low position. Call em light in reach. 10:58 Patient did not have IV access during this emergency room visit. em 10:58 No provider procedures requiring assistance completed. em Administered Medications: No medications were administered Outcome: 10:51 Discharge ordered by . gs 10:58 Patient left the ED. iw 10:58 Discharged to home ambulatory. em 10:58 Condition: good 10:58 Discharge instructions given to patient, Instructed on discharge instructions, follow up and referral plans. Demonstrated understanding of instructions, follow-up care. Signatures: Bhavin Esteves LVN LVN em Kylee Hand as Faith Blanton RN RN iw Umesh Pham PA PA [id number] Ted Loera MD MD Corrections: (The following items were deleted from the chart) 11:01 10:15 BP 122 / 78; Pulse 99bpm; Resp 10bpm; Pulse Ox 100% RA; Temp 98.2F; 108.86 kg; em Height 5 ft. 6 in.; BMI: 38.7; Pain 0/10; iw
== END 2018-10-13 10:58 | disposition home or self-care (01) ==
LOC: ER 09:53
DX: S60.454A Superficial foreign body of right ring finger, initial encounter (principal); I10 Essential (primary) hypertension; Z79.01 Long term (current) use of anticoagulants; Z95.818 Presence of other cardiac implants and grafts
CPT/HCPCS: 99281